=== PATIENT | male | born 1980 | race Caucasian/White ===

== ENCOUNTER 2018-02-21 12:19 | Emergency (ER) | payer OTHER ==
[~2018-02-21] VITALS: Ht 162.6 cm; Wt 76.7 kg
[2018-02-21 12:28] VITALS: BP 133/84
--- NOTE | 2018-02-21 12:49 | NUR ---
PT AMBULATED TO ER BED 03
--- NOTE | 2018-02-21 12:50 | NUR ---
C/O RECTAL DISCOMFORT, HEMORRHOIDS X TODAY DENIES PRURITUS OR BLEEDING DENIES N/V/D; SKIN IS PINK/WARM/DRY; AAOX4 WITH EVEN AND STEADY GAIT; LUNGS CLEAR BL; HR EVEN AND REGULAR; PT DENIES ANY FEVER, CP, SOB, OR COUGH AT THIS TIME; PATIENT STATES PAIN OF 0/10 AT THIS TIME; VSS; PATIENT POSITIONED FOR COMFORT; HOB ELEVATED; BEDRAILS UP X2; BED DOWN. ER MD MADE AWARE OF PT STATUS.
--- NOTE | 2018-02-21 13:30 | NUR ---
PATIENT SLEEPING IN BED. NO NEEDS NOTED AT THIS TIME.
[2018-02-21] MEDS ORDERED: KETOROLAC 60 MG/2 ML VIAL IM ONE (15:15)
[2018-02-21] MEDS ORDERED: LACTULOSE 20 GM/30 ML UDC PO ONE (15:15)
[2018-02-21 15:32] VITALS: BP 133/84
--- NOTE | 2018-02-21 15:32 | NUR ---
DPatient discharged with v/s stable. Written and verbal after care instructions given and explained. Patient alert, oriented and verbalized understanding of instructions. Ambulatory with steady gait. All questions addressed prior to discharge. ID band removed. Patient advised to follow up with PMD. Rx of ANUSOL SUPP, LACTULOSE, ANUSOL CREAM given. Patient educated on indication of medication including possible reaction and side effects. Opportunity to ask questions provided and answered.
== END 2018-02-21 15:32 | disposition home or self-care (01) ==
LOC: MED 12:19
DX: K64.4 Residual hemorrhoidal skin tags (principal); N39.0 Urinary tract infection, site not specified
CPT/HCPCS: 96372; 99283; J1885